=== PATIENT | female | born 1995 | race Caucasian/White ===

== ENCOUNTER → 2020-11-22 | Outpatient (REF) | payer OTHER | LOC: M SFHCWAGY 18:53 | PROVIDERS: ATTEND Advanced Practice Midwife | DX: Z12.4 Encounter for screening for malignant neoplasm of cervix (principal); Z77.9 Other contact with and (suspected) exposures hazardous to health | CPT/HCPCS: G0123; G0463 ==

== ENCOUNTER → 2021-02-22 | Outpatient (REF) | payer OTHER ==
[~2021-02-22] MED LIST: B-12100T2 PO; CEPH25SS PO; GNP250TA9 PO; PRENTAB9 PO
== END ==
LOC: MERGE 16:59 → M SFHCWAGY 16:59
PROVIDERS: ATTEND Advanced Practice Midwife
DX: Z36.85 Encounter for antenatal screening for Streptococcus B (principal); Z3A.00 Weeks of gestation of pregnancy not specified
CPT/HCPCS: 87081; 90471; 90715; G0463